=== PATIENT | male | born 1980 | race Caucasian/White ===

== ENCOUNTER → 2021-12-06 07:00 | Outpatient (CLI) | payer BC, SELFPAY ==
[2021-12-14 12:21] LABS: SARS-CoV-2 RNA PCR Negative
== END ==
PROVIDERS: PCP Physician Assistant; Visit Provider Physician Assistant
DX: Z78.9 Other specified health status (principal); Z20.822 Contact with and (suspected) exposure to COVID-19
CPT/HCPCS: C9803; U0003; U0005

== ENCOUNTER 2022-09-08 08:14 | Outpatient (CLI) | payer BC, SELFPAY ==
--- NOTE | ~2022-09-08 | US_ITS ---
Abdominal Sonogram: Real-time sonographic imaging of the abdomen was performed. Clinical History: Abnormal serum enzyme levels Findings: The liver appears echogenic, with no evidence of bile duct dilatation. There is a hypoecho ic area adjacent to gallbladder fossa which could reflect focal fatty sparing. Main portal vein demon strates normal direction of flow. The spleen is normal in size without evidence of focal lesion. The gallbladder is well distended, and appears normal with no evidence of gallstone or wall thickening. The common bile duct measures 4 mm. The visualized pancreas, aorta, and IVC are unremarkable. The r ight kidney measures 10.1 cm in length and the left kidney measures 10.6 cm. There is no hydronephro sis or renal calculus. Impression: Diffuse fatty infiltration of liver with probable focal fatty sparing adjacent to the gallbladder. Reviewed, dictated and finalized at [facility]. Impression: Diffuse fatty infiltration of liver with probable focal fatty sparing adjacent to the gallbladder.
== END 2022-09-08 08:15 | disposition home or self-care (01) ==
PROVIDERS: PCP Family Medicine; Visit Provider Physician Assistant
DX: R74.8 Abnormal levels of other serum enzymes (principal); K76.0 Fatty (change of) liver, not elsewhere classified
CPT/HCPCS: 76700